=== PATIENT | male | born 1955 | race Caucasian/White ===

== ENCOUNTER 2017-02-07 16:34 | Inpatient (IN) | payer OTHER ==
[~2017-02-07] VITALS: Ht 182.9 cm; Wt 87.2 kg
[~2017-02-07 16:34] MED LIST: AMLO10TA2 PO; ASPI81TA82 PO; ATOR1TAB18 PO; BENZ100 PO; FENO1TAB76 PO; LOSA100T PO; METO50TA PO; NICO21DI2 T-DERMAL; OMEP20TA PO; VENTAER INH
[2017-02-07 16:36] VITALS: BP 147/72; PULSE 88; RESP 20; TEMP 97.4; O2SAT 85
--- NOTE | 2017-02-07 16:41 | PD ---
Physical Exam Time Seen by Provider: 16:38 Narrative 61yo M sent by Dr. Perkins for low oxygen level of 72% in office. Hx of COPD. Reports a little SOB. Denies chest pain. Patient seen in triage. Awaiting bed placement. VS reviewed. Pt placed on 2L in triage for SaO2 85%. Patient in no acute distress in triage. Data Data Last Documented VS Vital Signs Date Time Temp Pulse Resp B/P Pulse Ox O2 Delivery O2 Flow Rate FiO2 02/07/17 16:36 97.4 88 20 147/72 85 MDM Supervised Visit with AB: Julisa Park February 07, 2017 16:41
--- NOTE | 2017-02-07 17:07 | RADRPT ---
EXAM DATE/TIME: 02/07/2017 16:55 [facility] COMPARISON: No previous studies available for comparison. INDICATIONS : Chest pain MEDICAL HISTORY : None. SURGICAL HISTORY : None. ENCOUNTER: Initial ACUITY: 1 day PAIN SCORE: Non-responsive. LOCATION: Bilateral chest FINDINGS: A single view of the chest demonstrates the lungs to be symmetrically aerated without evidence of mas s, infiltrate or effusion. The cardiomediastinal contours are unremarkable. Osseous structures are intact. Previous cervical fusion. CONCLUSION: Normal examination. Gasper Shaw MD on February 07, 2017 at 17:05 Board Certified Radiologist. This report was verified electronically.
[2017-02-07 17:12] VITALS: BP 119/84; PULSE 76; RESP 20; O2SAT 92
--- NOTE | 2017-02-07 17:19 | PD ---
HPI Chief Complaint: Respiratory Symptoms Time Seen by Provider: 17:08 Travel History International Travel<30 days: No Contact w/Intl Traveler<30days: No Traveled to known affect area: No History of Present Illness HPI TODAY HE WAS AT HIS PCP'S OFFICE (DR ALBERTO) WHEN HE WAS NOTED TO BE HYPOXEMIC IN 80'S, PT IS NOT OXYGEN DEPENDANT, AND SMOKES 1PPD, DENIES CP/NEIL/ ABD PAIN AT THIS TIME, DENIES N/V/D/FEVER BUT DOES HAVE COUGHING PROD OF YELLOW SPUTUM PFSH Social History Tobacco Use: Yes (1 PPD) Allergies-Medications (Allergen,Severity, Reaction): Coded Allergies: No Known Allergies (Unverified , 02/07/17) Reported Meds & Prescriptions Reported Meds & Active Scripts Active Nicotine Patch (Nicotine) 21 Mg/24 Hr Patch 21 Mg T-DERMAL DAILY Tessalon Perles (Benzonatate) 100 Mg Cap 100 Mg PO TID PRN Amlodipine (Amlodipine Besylate) 10 Mg Tab 10 Mg PO DAILY Metoprolol Tartrate 50 Mg Tab 50 Mg PO BID Reported Omeprazole 20 Mg Tab 20 Mg PO DAILY Atorvastatin (Atorvastatin Calcium) 80 Mg Tab 80 Mg PO HS Tricor (Fenofibrate) 48 Mg Tab 48 Mg PO HS Tke with food. Losartan (Losartan Potassium) 100 Mg Tab 100 Mg PO DAILY Ventolin Hfa 18 GM Inh (Albuterol Sulfate) 90 Mcg/Act Aer 1 Puff INH Q4H PRN Aspir-81 (Aspirin) 81 Mg Tab 81 Mg PO DAILY Review of Systems Except as stated in HPI: all other systems reviewed are Neg Respiratory: Positive: Cough, Shortness of Breath Physical Exam Narrative GENERAL: SKIN: Warm and dry. HEAD: Atraumatic. Normocephalic. EYES: Pupils equal and round. No scleral icterus. No injection or drainage. ENT: No nasal bleeding or discharge. Mucous membranes pink and moist. NECK: Trachea midline. No JVD. CARDIOVASCULAR: Regular rate and rhythm. RESPIRATORY: TACHYPNEIC, WHEEZING, DECREASED TV, BUT ABLE TO SPEAK FULL SENTENCES, PULSE OX 88 ON [place], 92-94 ON 2L GASTROINTESTINAL: Abdomen soft, non-tender, nondistended. Hepatic and splenic margins not palpable. MUSCULOSKELETAL: Extremities without clubbing, cyanosis, or edema. No obvious deformities. NEUROLOGICAL: Awake and alert. No obvious cranial nerve deficits. Motor grossly within normal limits. Five out of 5 muscle strength in the arms and legs. Normal speech. PSYCHIATRIC: Appropriate mood and affect; insight and judgment normal. Data Data Last Documented VS Vital Signs Date Time Temp Pulse Resp B/P Pulse Ox O2 Delivery O2 Flow Rate FiO2 02/07/17 17:47 93 Nasal Cannula 2.00 02/07/17 17:12 76 20 119/84 02/07/17 16:36 97.4 Orders Electrocardiogram (02/07/17 16:39) Complete Blood Count With Diff (02/07/17 16:39) Basic Metabolic Panel (Bmp) (02/07/17 16:39) Ckmb (Isoenzyme) Profile (02/07/17 16:39) Troponin I (02/07/17 16:39) Chest, Single Ap (02/07/17 16:39) Arterial Blood Gas (Abg) (02/07/17 17:19) Methylprednisolone So Succ Inj (Solumedr (02/07/17 17:30) Albuterol Neb (Albuterol Neb) (02/07/17 17:30) Ct Pulmonary Angiogram (02/07/17 17:27) CKMB (02/07/17 17:00) CKMB% (02/07/17 17:00) Labs Laboratory Tests Test 02/07/17 02/07/17 17:00 17:57 White Blood Count 7.5 TH/MM3 Red Blood Count 4.60 MIL/MM3 Hemoglobin 9.3 GM/DL Hematocrit 31.0 % Mean Corpuscular Volume 67.3 FL Mean Corpuscular Hemoglobin 20.3 PG Mean Corpuscular Hemoglobin 30.1 % Concent Red Cell Distribution Width 18.5 % Platelet Count 251 TH/MM3 Mean Platelet Volume 8.7 FL Neutrophils (%) (Auto) 57.9 % Lymphocytes (%) (Auto) 24.1 % Monocytes (%) (Auto) 14.5 % Eosinophils (%) (Auto) 2.5 % Basophils (%) (Auto) 1.0 % Neutrophils # (Auto) 4.3 TH/MM3 Lymphocytes # (Auto) 1.8 TH/MM3 Monocytes # (Auto) 1.1 TH/MM3 Eosinophils # (Auto) 0.2 TH/MM3 Basophils # (Auto) 0.1 TH/MM3 CBC Comment DIFF FINAL Differential Comment Sodium Level 141 MEQ/L Potassium Level 3.9 MEQ/L Chloride Level 105 MEQ/L Carbon Dioxide Level 29.3 MEQ/L Anion Gap 7 MEQ/L Blood Urea Nitrogen 12 MG/DL Creatinine 0.89 MG/DL Estimat Glomerular Filtration 86 ML/MIN Rate Random Glucose 116 MG/DL Calcium Level 8.7 MG/DL Total Creatine Kinase 168 U/L Creatine Kinase MB 2.0 NG/ML Troponin I LESS THAN 0.02 NG/ML Blood Gas Puncture Site RT RADIAL Blood Gas Patient Temperature 98.6 Blood Gas HCO3 29 mmol/L Blood Gas Base Excess 3.3 mmol/L Blood Gas Oxygen Saturation 93 % Arterial Blood pH 7.32 Arterial Blood Partial 58 mmHg Pressure CO2 Arterial Blood Partial 139 mmHG Pressure O2 Arterial Blood Oxygen Content 12.3 Vol % Arterial Blood 5.7 % Carboxyhemoglobin Arterial Blood Methemoglobin 0.5 % Blood Gas Hemoglobin 9.1 G/DL Oxygen Delivery Device NASAL CANNULA Blood Gas Liter Flow 2 L/M MDM Medical Decision Making Medical Screen Exam Complete: Yes Emergency Medical Condition: Yes Medical Record Reviewed: Yes Interpretation(s) EKG: NSR, NO STEMI PATTERN Differential Diagnosis COPD EXAC, PNA, PE, HI Narrative Course CXR FAIRLY NEG AND WITHOUT PNA, SIGNED OUT PENDING CT R/O PE, PT IS IN NO DISTRESS AND DOES WELL WITH 2L NC. Diagnosis Primary Impression: COPD (chronic obstructive pulmonary disease) Qualified Code: J44.9 - Chronic obstructive pulmonary disease, unspecified COPD type Carlos Alberto Cuevas MD February 07, 2017 17:19 Carlos Alberto Cuevas MD February 07, 2017 17:19
[2017-02-07 17:20] LABS: AUTOMATED NEUTROPHIL # 4.3 TH/MM3 (1.8-7.7); BASOPHIL # 0.1 TH/MM3 (0-0.2); EOSINOPHIL # 0.2 TH/MM3 (0-0.4); EOSINOPHIL % 2.5 % (0.0-4.0); HEMO FLAGS DIFF FINAL; LYMPH % 24.1 % (9.0-44.0); LYMPHOCYTE # 1.8 TH/MM3 (1.0-4.8); MEAN CELL VOLUME 67.3 FL (80.0-100.0); MEAN CORPUSCULAR HEMOGLOBIN 20.3 PG (27.0-34.0); MEAN CORPUSCULAR HGB CONC 30.1 % (32.0-36.0); MONO % 14.5 % (0.0-8.0); NEUT % 57.9 % (16.0-70.0); PLATELET COUNT 251 TH/MM3 (150-450); RED CELL DISTRIBUTION WIDTH 18.5 % (11.6-17.2); WHITE BLOOD COUNT 7.5 TH/MM3 (4.0-11.0)
[2017-02-07 17:44] LABS: ANION GAP 7 MEQ/L (5-15); BICARBONATE 29.3 MEQ/L (21.0-32.0); BLOOD UREA NITROGEN 12 MG/DL (7-18); CHLORIDE 105 MEQ/L (98-107); GLOMERULAR FILTRATION RATE 86 ML/MIN (>89); POTASSIUM 3.9 MEQ/L (3.5-5.1); SODIUM (NA) 141 MEQ/L (136-145)
[2017-02-07 17:47] VITALS: O2SAT 93
[2017-02-07 17:48] LABS: CREATINE KINASE 168 U/L (39-308)
[2017-02-07] MEDS: RESP: ALBUTEROL 2.5 MG/3 ML NEB (SCH) INH (17:48)
[2017-02-07] MEDS: methylPREDNISolone SOD SUCC 125 MG/2 ML VIAL IVP ONE ×2 (18:35→18:52)
[2017-02-07 18:40] LABS: BLOOD GAS BASE EXCESS 3.3 mmol/L (-2-2); BLOOD GAS CARBOXYHEMOGLOBIN 5.7 % (0-4); BLOOD GAS HCO3 29 mmol/L (22-26); BLOOD GAS METHEMOGLOBIN 0.5 % (0-2); BLOOD GAS O2 HGB SATURATION 93 % (90-100); BLOOD GAS OXYGEN CONTENT 12.3 Vol % (12.0-20.0); BLOOD GAS PCO2 58 mmHg (38-42); BLOOD GAS PO2 139 mmHG (61-120); BLOOD GAS TOTAL HGB 9.1 G/DL (12.0-16.0); TEMP CORR TO 98.6
[2017-02-07 18:41] LABS: CRITICAL VALUE YES; DRAW SITE RT RADIAL; LITER FLOW 2 L/M; NUMBER OF ARTERIAL PUNCTURES 1; OXYGEN DEVICE NASAL CANNULA; STAT YES; ULNAR PULSE PRESENT
[2017-02-07] MEDS ORDERED: AMLO5TAB2 PO ×2 (19:36)
[2017-02-07] MEDS ORDERED: ASPI81TA81 (19:36)
[2017-02-07] MEDS ORDERED: LEVE10003 PO (19:36)
--- NOTE | 2017-02-07 19:40 | PD ---
Data Data Last Documented VS Vital Signs Date Time Temp Pulse Resp B/P Pulse Ox O2 Delivery O2 Flow Rate FiO2 02/07/17 17:47 93 Nasal Cannula 2.00 02/07/17 17:12 76 20 119/84 02/07/17 16:36 97.4 Orders Electrocardiogram (02/07/17 16:39) Complete Blood Count With Diff (02/07/17 16:39) Basic Metabolic Panel (Bmp) (02/07/17 16:39) Ckmb (Isoenzyme) Profile (02/07/17 16:39) Troponin I (02/07/17 16:39) Chest, Single Ap (02/07/17 16:39) Arterial Blood Gas (Abg) (02/07/17 17:19) Methylprednisolone So Succ Inj (Solumedr (02/07/17 17:30) Albuterol Neb (Albuterol Neb) (02/07/17 17:30) Ct Pulmonary Angiogram (02/07/17 17:27) CKMB (02/07/17 17:00) CKMB% (02/07/17 17:00) Iohexol 350 Inj (Omnipaque 350 Inj) (02/07/17 20:10) Nicotine 14 Mg Patch.24 Hr (Habitrol 14 (02/07/17 21:15) Admit Order (Ed Use Only) (02/07/17 ) Labs Laboratory Tests Test 02/07/17 02/07/17 17:00 17:57 White Blood Count 7.5 TH/MM3 Red Blood Count 4.60 MIL/MM3 Hemoglobin 9.3 GM/DL Hematocrit 31.0 % Mean Corpuscular Volume 67.3 FL Mean Corpuscular Hemoglobin 20.3 PG Mean Corpuscular Hemoglobin 30.1 % Concent Red Cell Distribution Width 18.5 % Platelet Count 251 TH/MM3 Mean Platelet Volume 8.7 FL Neutrophils (%) (Auto) 57.9 % Lymphocytes (%) (Auto) 24.1 % Monocytes (%) (Auto) 14.5 % Eosinophils (%) (Auto) 2.5 % Basophils (%) (Auto) 1.0 % Neutrophils # (Auto) 4.3 TH/MM3 Lymphocytes # (Auto) 1.8 TH/MM3 Monocytes # (Auto) 1.1 TH/MM3 Eosinophils # (Auto) 0.2 TH/MM3 Basophils # (Auto) 0.1 TH/MM3 CBC Comment DIFF FINAL Differential Comment Sodium Level 141 MEQ/L Potassium Level 3.9 MEQ/L Chloride Level 105 MEQ/L Carbon Dioxide Level 29.3 MEQ/L Anion Gap 7 MEQ/L Blood Urea Nitrogen 12 MG/DL Creatinine 0.89 MG/DL Estimat Glomerular Filtration 86 ML/MIN Rate Random Glucose 116 MG/DL Calcium Level 8.7 MG/DL Iron Level 16 MCG/DL Total Iron Binding Capacity 473 MCG/DL Percent Iron Saturation 3.4 % Ferritin 4 NG/ML Total Creatine Kinase 168 U/L Creatine Kinase MB 2.0 NG/ML Troponin I LESS THAN 0.02 NG/ML B-Type Natriuretic Peptide 34 PG/ML Blood Gas Puncture Site RT RADIAL Blood Gas Patient Temperature 98.6 Blood Gas HCO3 29 mmol/L Blood Gas Base Excess 3.3 mmol/L Blood Gas Oxygen Saturation 93 % Arterial Blood pH 7.32 Arterial Blood Partial 58 mmHg Pressure CO2 Arterial Blood Partial 139 mmHG Pressure O2 Arterial Blood Oxygen Content 12.3 Vol % Arterial Blood 5.7 % Carboxyhemoglobin Arterial Blood Methemoglobin 0.5 % Blood Gas Hemoglobin 9.1 G/DL Oxygen Delivery Device NASAL CANNULA Blood Gas Liter Flow 2 L/M MDM Supervised Visit with AB: No Narrative Course Air soon from Dr. Cuevas at 1900, this is a 61-year-old male long-time smoking history presents emergency department for evaluation of hypoxemia. The patient apparently went to his primary care physician for a checkup today for workmen's related injuries and was noted to be hypoxic and 80% on room air. He was brought to the emergency department and placed on 4 L nasal cannula and saturates between 89 and 93 illness. He states he was very short of breath with minimal exertion but is currently feeling okay. He states he is hungry currently. CT PE study is ordered and pending constitution party spoken to the patient that he will require admission and he is agreeable. Last [address] Angiography 02/07/17 1727 Signed Impressions: Service Date/Time: January 19:58 - CONCLUSION: 1. Negative for central pulmonary emboli. 2. Minimal coronary artery calcifications. Mata Gutierrez MD FACR Chest X-Ray 02/07/17 1639 Signed Impressions: Service Date/Time: January 16:55 - CONCLUSION: Normal examination. Gasper Shaw MD Patient was discussed with the residents will be admitted. Diagnosis Primary Impression: COPD (chronic obstructive pulmonary disease) Qualified Code: J44.9 - Chronic obstructive pulmonary disease, unspecified COPD type Admitting Information Admitting Physician Requests: Admit Condition: Stable Avery Rehman MD February 07, 2017 19:40
[2017-02-07] MEDS ORDERED: IOHEXOL 350 MG/ML 10 ML VIAL (for RAD DIAG) IV ONE (20:10)
--- NOTE | 2017-02-07 20:27 | RADRPT ---
EXAM DATE/TIME: 02/07/2017 19:58 [facility] COMPARISON: No previous studies available for comparison. INDICATIONS : Low oxygen level,cough, smoker IV CONTRAST: 98 cc Omnipaque 350 (iohexol) IV RADIATION DOSE: 23.17 CTDIvol (mGy) MEDICAL HISTORY : Carotid stenosis. Carcinoma, prostate. SURGICAL HISTORY : None. ENCOUNTER: Initial ACUITY: 1 day PAIN SCALE: 2/10 LOCATION: Bilateral chest TECHNIQUE: Volumetric scanning of the chest was performed using a pulmonary embolism protocol MIP images were reconstructed. Using automated exposure control and adjustment of the mA and/or kV acco rding to patient size, radiation dose was kept as low as reasonably achievable to obtain optimal diag nostic quality images. FINDINGS: Prominent azygos lobe is noted. There is mild interstitial prominence. Minimal parenchymal changes are seen in the lingula and right base. There is no axillary adenopathy. There is no radiographically significant mediastinal adenopathy. There is no evidence for central pulmonary e mboli. There is no pericardial effusion. Very minimal LAD calcifications are noted. CONCLUSION: 1. Negative for central pulmonary emboli. 2. Minimal coronary artery calcifications. Mata Gutierrez MD FACR on February 07, 2017 at 20:23 Board Certified Radiologist. This report was verified electronically.
[2017-02-07] MEDS ORDERED: NICOTINE 14 MG/24 HR PATCH T-DERMAL ONE (21:15)
[2017-02-07 21:45] VITALS: O2SAT 92
[2017-02-07] MEDS ORDERED: ROPI12TA PO (22:33)
[2017-02-07 22:55] LABS: MEAN CORPUSCULAR HGB CONC 28.9 % (32.0-36.0)
[2017-02-07] MEDS ORDERED: ONDANSETRON HCL 4 MG/2 ML VIAL IVP PRN (23:00)
[2017-02-07] MEDS ORDERED: NALOXONE HCL 0.4 MG/ML AMP IV PRN (23:00)
[2017-02-07] MEDS ORDERED: ACETAMINOPHEN 325 MG TAB PO PRN (23:00)
[2017-02-07] MEDS ORDERED: SENNOSIDES 8.6 MG TAB PO PRN (23:00)
[2017-02-07] MEDS ORDERED: TEMAZEPAM 15 MG CAP PO PRN (23:00)
[2017-02-07] MEDS ORDERED: SODIUM CHLORIDE 0.9% FLUSH 10 ML FLUSH IV FLUSH PRN (23:00)
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
[2017-02-07 23:13] LABS: TRANSFERRIN IRON PROFILE 338 MG/DL (200-360)
[2017-02-07 23:16] LABS: FERRITIN 4 NG/ML (26-388)
[2017-02-07] MEDS ORDERED: RESP: ALBUTEROL 2.5 MG/3 ML NEB (PRN) INH (23:45)
[2017-02-08] VITALS (11 sets, daily range): BP systolic 106–139; BP diastolic 52–67; PULSE 67–100; RESP 16–20; TEMP 96.8–97.8; O2SAT 88–98
[2017-02-08] MEDS: RESP: ALBUTEROL 2.5 MG/IPRATROPIUM 0.5 MG NEB (SCH) INH ×7 (00:20→23:21)
[2017-02-08 07:19] LABS: HEMATOCRIT 32.6 % (39.0-51.0); MEAN CELL VOLUME 68.7 FL (80.0-100.0); MEAN CORPUSCULAR HEMOGLOBIN 19.9 PG (27.0-34.0); PLATELET COUNT 240 TH/MM3 (150-450); RED BLOOD COUNT 4.74 MIL/MM3 (4.50-5.90); RED CELL DISTRIBUTION WIDTH 18.9 % (11.6-17.2); REVIEW FLAG FINAL; WHITE BLOOD COUNT 7.3 TH/MM3 (4.0-11.0)
[2017-02-08 07:41] LABS: BICARBONATE 30.4 MEQ/L (21.0-32.0); POTASSIUM 4.1 MEQ/L (3.5-5.1)
[2017-02-08] MEDS: PANTOPRAZOLE SOD 20 MG DELAYED RELEASE TAB PO SCH (08:42)
[2017-02-08] MEDS: FERROUS SULFATE 325 MG (65 MG ELEMENTAL IRON) TAB PO SCH ×2 (08:42→20:39)
[2017-02-08] MEDS: METOPROLOL TARTRATE 50 MG TAB PO SCH ×2 (08:42→20:39)
[2017-02-08] MEDS: levETIRAcetam 500 MG TAB PO SCH ×2 (08:42→20:40)
[2017-02-08] MEDS: LOSARTAN 50 MG TAB PO SCH (08:42)
[2017-02-08] MEDS: amLODIPine BESYLATE 5 MG TAB PO SCH ×2 (08:42→20:39)
[2017-02-08] MEDS: NICOTINE 21 MG/24 HR PATCH T-DERMAL SCH (08:42)
[2017-02-08] MEDS: ASPIRIN EC 81 MG TABEC PO SCH (08:42)
[2017-02-08] MEDS: predniSONE 20 MG TAB PO SCH (08:43)
[2017-02-08] MEDS: SODIUM CHLORIDE 0.9% FLUSH 10 ML FLUSH IV FLUSH SCH ×2 (08:43→20:39)
[2017-02-08] MEDS: ASCORBIC ACID 500 MG TAB PO SCH ×2 (08:43→20:39)
[2017-02-08] MEDS: DOCUSATE SODIUM 50 MG/SENNA 8.6 MG TAB PO SCH ×2 (08:43→11:20)
[2017-02-08] MEDS ORDERED: REMOVE OLD PATCH T-DERMAL ONE (09:00)
[2017-02-08] MEDS ORDERED: REMOVE OLD PATCH T-DERMAL SCH (09:00)
[2017-02-08] MEDS ORDERED: NON-FORMULARY DRUG (Omeprazole 20 MG) PO SCH (09:00)
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
[2017-02-08] MEDS: TIOTROPIUM BROMIDE 18 MCG INH INH SCH (11:16)
--- NOTE | 2017-02-08 12:26 | MB ---
cc: LAURA FELIZ DATE OF CONSULTATION 02/08/[address] Samuel REASON FOR CONSULTATION Evaluation of shortness of breath. HISTORY OF PRESENT ILLNESS Mr. Yo is a 58 year-old male who has a longstanding history of smoking two and a half packs a day which cuts down to one a day. He has been having increasing shortness of breath for many months to the extent that walking inside the house or doing anything makes him short of breath. He denies any significant wheezing. No chest pain. No nausea or vomiting. The patient was seen by his primary care physician and was found to be hypoxic. He presented to the emergency room. He had a CT of his chest done which does not show any pulmonary embolism or acute pathology was seen. He had a blood gas done on 2 liters nasal cannula which showed a pH 7.32, pCO2 58, pO2 139, bicarb 29, iron saturation 98%. CBC showed a WBC count of 7.3, hemoglobin 9.4, hematocrit 32.6 MCV 68, platelet count 240. His sodium was 140, potassium 4.1, chloride 105, CO2 30, BUN 11, creatinine 0.81. PAST MEDICAL HISTORY Significant for a history of: 1. COPD. He does not take any medication. 2. Hypertension 3. History of CA of the prostate status post radiation seeds 4. History of right carotid endarterectomy. He had a small stroke after that which did not have any residual Effect. 5. Prediabetic condition 6. Coronary artery disease 7. Asbestos exposure 8. History of C5-C6 surgery. 9. Right carotid endarterectomy. MEDICATIONS He is currently takin. Zithromax 500 mg a day 2. Amlodipine 5 mg a day 3. Keppra 1000 mg twice a day 4. Losartan 100 mg a day 5. Metoprolol 50 mg twice a day 6. Aspirin 81 mg a day 7. Protonix 20 mg a day 8. Nicotine patch 9. Ferrous sulfate 325 mg twice a day 10. Ascorbic acid 1000 mg 11. Prednisone 40 mg a day 12. Spiriva once a day 13. Temazepam 15 mg as needed ALLERGIES NO KNOWN DRUG ALLERGIES. SOCIAL HISTORY He has a longstanding history of smoking two pack to two and half pack for 45 years which he cut down to one pack a day. He alcohol use. No drug use. He works at a [employer]. Earlier he also worked in the [employer] and had exposure to asbestos. FAMILY HISTORY He is for a third time for seven years. He has two children. REVIEW OF SYSTEMS Normally, he is up, around and active. 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 Weight is stable. No DVT, pulmonary embolism. He has a history of seizure. PHYSICAL EXAMINATION A moderately built, well-nourished male not in acute distress. VITAL SIGNS: Blood pressure 139/60, heart rate 100, respirations 20, temperature 97.8. HEENT: Examination showed pupils are equal and reactive to light. Oral mucosa, nasal mucosa normal. NECK: Supple. JVP not raised. CHEST: Equal bilaterally. Has a few rhonchi. CARDIOVASCULAR: S1 and S2 normal. ABDOMEN: Benign. EXTREMITIES: No edema. IMPRESSION 1. Hypoxia with respiratory acidosis likely from his underlying COPD. No pulmonary embolism. 2. Nicotine use 3. Diabetes mellitus 4. Obstructive sleep apnea 5. Hypertension 6. History of [place] 7. Seizure disorder 8. History of C5-6 spine surgery. PLAN I discussed with the patient and his strongly to quit smoking. I will assess his pulmonary function study. I will also check his oxygen walk test to see if he will need supplemental oxygen. Continue his aerosol treatment. Monitor his blood sugar. Further treatment will depend upon the course in the hospital. Thank you, Dr. Samuel for this consultation. MD RACHID Ayala/DELMIS /11:42 AM /12:08 PM
[2017-02-08] MEDS: ATORVASTATIN 80 MG TAB PO SCH (20:40)
[2017-02-08] MEDS: REMOVE OLD PATCH T-DERMAL SCH (20:41)
[2017-02-08] MEDS ORDERED: ROPINIROLE PO SCH (21:00)
--- NOTE | 2017-02-08 21:42 | EKG ---
Date Performed: 02/07/2017 Time Performed: 16:47:56 PTAGE: 61 years EKG: Sinus rhythm NORMAL ECG NO PREVIOUS TRACING DOCTOR: Obed Mckeon Interpretating Date/Time 02/08/2017 21:40:22
[2017-02-08 22:15] LABS: MEAN CORPUSCULAR HGB CONC 28.6 % (32.0-36.0)
[2017-02-09] VITALS (8 sets, daily range): BP systolic 103–129; BP diastolic 58–69; PULSE 78–90; RESP 16–20; TEMP 96.9–98.2; O2SAT 89–94
[2017-02-09] MEDS: RESP: ALBUTEROL 2.5 MG/IPRATROPIUM 0.5 MG NEB (SCH) INH ×5 (04:00→20:39)
[2017-02-09 05:25] LABS: HEMATOCRIT 30.6 % (39.0-51.0); MEAN CORPUSCULAR HEMOGLOBIN 19.5 PG (27.0-34.0); PLATELET COUNT 237 TH/MM3 (150-450); RED BLOOD COUNT 4.51 MIL/MM3 (4.50-5.90); RED CELL DISTRIBUTION WIDTH 19.1 % (11.6-17.2); REVIEW FLAG FINAL; WHITE BLOOD COUNT 13.2 TH/MM3 (4.0-11.0)
[2017-02-09 05:36] LABS: BICARBONATE 30.6 MEQ/L (21.0-32.0); POTASSIUM 3.9 MEQ/L (3.5-5.1)
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
[2017-02-09] MEDS: TIOTROPIUM BROMIDE 18 MCG INH INH SCH (08:33)
[2017-02-09] MEDS: levETIRAcetam 500 MG TAB PO SCH ×2 (08:35→21:06)
[2017-02-09] MEDS: predniSONE 20 MG TAB PO SCH (08:35)
[2017-02-09] MEDS: AZITHROMYCIN 250 MG TAB PO SCH (08:35)
[2017-02-09] MEDS: SODIUM CHLORIDE 0.9% FLUSH 10 ML FLUSH IV FLUSH SCH ×2 (08:35→21:07)
[2017-02-09] MEDS: FERROUS SULFATE 325 MG (65 MG ELEMENTAL IRON) TAB PO SCH ×2 (08:36→21:05)
[2017-02-09] MEDS: DOCUSATE SODIUM 50 MG/SENNA 8.6 MG TAB PO SCH (08:36)
[2017-02-09] MEDS: METOPROLOL TARTRATE 50 MG TAB PO SCH ×2 (08:36→21:06)
[2017-02-09] MEDS: amLODIPine BESYLATE 5 MG TAB PO SCH ×2 (08:36→21:15)
[2017-02-09] MEDS: PANTOPRAZOLE SOD 20 MG DELAYED RELEASE TAB PO SCH (08:36)
[2017-02-09] MEDS: ASPIRIN EC 81 MG TABEC PO SCH (08:36)
[2017-02-09] MEDS: ASCORBIC ACID 500 MG TAB PO SCH ×2 (08:36→21:05)
[2017-02-09] MEDS: LOSARTAN 50 MG TAB PO SCH (08:36)
[2017-02-09] MEDS: NICOTINE 21 MG/24 HR PATCH T-DERMAL SCH (08:38)
[2017-02-09] MEDS: REMOVE OLD PATCH T-DERMAL SCH (21:00)
[2017-02-09] MEDS: ATORVASTATIN 80 MG TAB PO SCH (21:06)
[2017-02-10] MEDS: RESP: ALBUTEROL 2.5 MG/IPRATROPIUM 0.5 MG NEB (SCH) INH ×5 (03:42→16:00)
[2017-02-10 03:44] VITALS: O2SAT 90
[2017-02-10 04:20] VITALS: BP 126/79; PULSE 74; RESP 17; TEMP 97.5; O2SAT 92
[2017-02-10 06:48] LABS: AUTOMATED NEUTROPHIL # 9.2 TH/MM3 (1.8-7.7); BASOPHIL # 0.1 TH/MM3 (0-0.2); BASOPHIL % 0.5 % (0.0-2.0); EOSINOPHIL % 0.3 % (0.0-4.0); HEMATOCRIT 29.2 % (39.0-51.0); HEMO FLAGS DIFF FINAL; LYMPH % 15.6 % (9.0-44.0); MEAN CELL VOLUME 67.7 FL (80.0-100.0); MEAN CORPUSCULAR HEMOGLOBIN 19.6 PG (27.0-34.0); MONO % 12.1 % (0.0-8.0); NEUT % 71.5 % (16.0-70.0); PLATELET COUNT 222 TH/MM3 (150-450); RED BLOOD COUNT 4.31 MIL/MM3 (4.50-5.90); RED CELL DISTRIBUTION WIDTH 18.9 % (11.6-17.2); WHITE BLOOD COUNT 12.9 TH/MM3 (4.0-11.0)
[2017-02-10 07:50] VITALS: BP 123/68; PULSE 74; RESP 18; TEMP 98.2; O2SAT 95
[2017-02-10] MEDS: amLODIPine BESYLATE 5 MG TAB PO SCH (08:44)
[2017-02-10] MEDS: LOSARTAN 50 MG TAB PO SCH (08:44)
[2017-02-10] MEDS: NICOTINE 21 MG/24 HR PATCH T-DERMAL SCH (08:45)
[2017-02-10] MEDS: AZITHROMYCIN 250 MG TAB PO SCH (08:45)
[2017-02-10] MEDS: ASCORBIC ACID 500 MG TAB PO SCH (08:45)
[2017-02-10] MEDS: ASPIRIN EC 81 MG TABEC PO SCH (08:45)
[2017-02-10] MEDS: FERROUS SULFATE 325 MG (65 MG ELEMENTAL IRON) TAB PO SCH (08:45)
[2017-02-10] MEDS: DOCUSATE SODIUM 50 MG/SENNA 8.6 MG TAB PO SCH (08:45)
[2017-02-10] MEDS: METOPROLOL TARTRATE 50 MG TAB PO SCH (08:45)
[2017-02-10] MEDS: levETIRAcetam 500 MG TAB PO SCH (08:45)
[2017-02-10] MEDS: PANTOPRAZOLE SOD 20 MG DELAYED RELEASE TAB PO SCH (08:45)
[2017-02-10] MEDS: predniSONE 20 MG TAB PO SCH (08:45)
[2017-02-10] MEDS: SODIUM CHLORIDE 0.9% FLUSH 10 ML FLUSH IV FLUSH SCH (08:46)
[2017-02-10] MEDS: TIOTROPIUM BROMIDE 18 MCG INH INH SCH (09:00)
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
[2017-02-10] MEDS ORDERED: PRED10 PO ×2 (10:52→16:59)
[2017-02-10] MEDS ORDERED: VENTAER INH ×2 (10:52→16:59)
[2017-02-10] MEDS ORDERED: IPRA17I INH ×2 (10:52→16:59)
--- NOTE | 2017-02-10 10:54 | HHI.DCPOC ---
Discharge Care Plan Diagnosis: (1) COPD with exacerbation (2) Iron deficiency anemia Goals to Promote Your Health * To prevent worsening of your condition and complications * To maintain your health at the optimal level Directions to Meet Your Goals Take your medications as prescribed Follow your dietary instruction Follow activity as directed Keep your appointments as scheduled Take your immunizations and boosters as scheduled If your symptoms worsen call your PCP, if no PCP go to Urgent Care Center or Emergency Room Smoking is Dangerous to Your Health. Avoid second hand smoke Call the 24-hour hour crisis hotline for domestic abuse at Bert Perkins MD R3 February 10, 2017 10:54
[2017-02-10] MEDS ORDERED: OXYGENTANK NAS.CANULA (11:17)
[2017-02-10 12:00] VITALS: BP 118/66; PULSE 73; RESP 18; TEMP 97.4; O2SAT 94
[2017-02-10 14:03] VITALS: O2SAT 94
[2017-02-10 15:56] LABS: BLOOD GAS BASE EXCESS 7.4 mmol/L (-2-2); BLOOD GAS CARBOXYHEMOGLOBIN 1.9 % (0-4); BLOOD GAS HCO3 32 mmol/L (22-26); BLOOD GAS METHEMOGLOBIN 1.1 % (0-2); BLOOD GAS O2 HGB SATURATION 88 % (90-100); BLOOD GAS OXYGEN CONTENT 11.1 Vol % (12.0-20.0); BLOOD GAS PCO2 53 mmHg (38-42); BLOOD GAS PO2 62 mmHg (61-120); TEMP CORR TO 98.6
[2017-02-10 15:57] LABS: CRITICAL VALUE YES; DRAW SITE RT RADIAL; LITER FLOW 1 L/M; NUMBER OF ARTERIAL PUNCTURES 1; OXYGEN DEVICE NASAL CANNULA; STAT YES; ULNAR PULSE PRESENT
[2017-02-10 16:00] VITALS: BP 124/69; PULSE 79; RESP 18; TEMP 97.4; O2SAT 94
[2017-02-10] MEDS ORDERED: ASPI81TA81 PO (16:59)
[2017-02-10] MEDS ORDERED: FENO1TAB76 PO (16:59)
[2017-02-10] MEDS ORDERED: METO50TA PO (16:59)
[2017-02-10] MEDS ORDERED: LOSA100T PO (16:59)
[2017-02-10] MEDS ORDERED: OMEP20TA PO (16:59)
[2017-02-10] MEDS ORDERED: ATOR1TAB18 PO (16:59)
[2017-02-10] MEDS ORDERED: AMLO5TAB2 PO (16:59)
[2017-02-10] MEDS ORDERED: LEVE10003 PO (16:59)
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
[2017-02-12] MEDS ORDERED: OXYGEN NAS.CANULA (16:29)
[2017-03-06] MEDS ORDERED: CEPH500T PO (11:05)
[2017-03-12] MEDS ORDERED: CLIN1CAP6 PO (16:27)
[2017-03-18] MEDS ORDERED: IPRASOL INH (08:56)
[2017-03-18] MEDS ORDERED: NEBULIZER/ADULT1 KIT (08:56)
[2017-03-18] MEDS ORDERED: ATOR1TAB18 PO (08:57)
[2017-03-18] MEDS ORDERED: OMEP20TA PO (08:57)
== END 2017-02-10 18:02 | disposition home or self-care (01) | DRG 190 ==
LOC: NEPE 16:34 → NEDA 21:18 → N06B 02-08 01:05
PROVIDERS: ADMIT Family Medicine; ATTEND Family Medicine
DX: J44.1 Chronic obstructive pulmonary disease with (acute) exacerbation (principal); J96.21 Acute and chronic respiratory failure with hypoxia; E87.2 Acidosis; D50.9 Iron deficiency anemia, unspecified; E11.9 Type 2 diabetes mellitus without complications; I10 Essential (primary) hypertension; E78.5 Hyperlipidemia, unspecified; G25.81 Restless legs syndrome; G40.909 Epilepsy, unspecified, not intractable, without status epilepticus; G47.33 Obstructive sleep apnea (adult) (pediatric); I25.10 Atherosclerotic heart disease of native coronary artery without angina pectoris; I25.2 Old myocardial infarction; K21.0 Gastro-esophageal reflux disease with esophagitis; K59.00 Constipation, unspecified; T38.0X5A Adverse effect of glucocorticoids and synthetic analogues, initial encounter; D72.829 Elevated white blood cell count, unspecified; Z79.899 Other long term (current) drug therapy; Z77.090 Contact with and (suspected) exposure to asbestos; Z79.82 Long term (current) use of aspirin; F17.200 Nicotine dependence, unspecified, uncomplicated; Z85.46 Personal history of malignant neoplasm of prostate; Z86.73 Personal history of transient ischemic attack (TIA), and cerebral infarction without residual deficits; Z92.3 Personal history of irradiation; Z99.81 Dependence on supplemental oxygen
CPT/HCPCS: 36600; 71010; 71275; 80048; 80074; 82272; 82550; 82552; 82728; 82805; 82948; 83540; 83550; 83880; 84484; 85025; 85027; 87804; 93005; 94150; 94640; 94664; 94762; J2930; J7512; J7613; Q9967